=== PATIENT | female | born 1985 | race Hispanic/Latino ===

== ENCOUNTER 2018-06-30 21:56 | Emergency (ER) | payer MEDICAID, OTHER ==
[2018-06-30 22:48] LABS: RAPID GROUP A STREP NEGATIVE (NEGATIVE)
== END 2018-06-30 23:16 | disposition home or self-care (01) ==
LOC: EDH 21:56
DX: O99.89 Other specified diseases and conditions complicating pregnancy, childbirth and the puerperium (principal); R05 Cough; R50.9 Fever, unspecified; Z3A.27 27 weeks gestation of pregnancy; Z79.82 Long term (current) use of aspirin
CPT/HCPCS: 87804; 87880